=== PATIENT | male | born 1980 | race Caucasian/White ===

== ENCOUNTER → 2016-12-23 07:59 | Day surgery (SDC) | payer MEDICAID, OTHER ==
[~2016-12-23 07:59] MED LIST: Buffered Lidocaine 1% SYR 3ML* 3 ML/SYR SYRINGE INTRADERM ONE; Bupivacaine 0.5% W/EPI SDV* 30 ML VIAL ONE; Clindamycin 900 MG IVPREMIX(* 900 MG/50 ML SDV IV ONE; Desflurane* 240 ML INH ONE; Dexamethasone IV* 4 MG/ML 1 ML (4 MG) IV SLOW PU ONE; Dexamethasone IV* 4 MG/ML 1 ML (4 MG) ONE; DiMENhydriNATE IV* 50 MG/ML VIAL IV PUSH PRN; EPINEPHrine AMP 1 MG/ML ONE; Famotidine IV* 10 MG/ML 2 ML (20 mg) IV ONE; Famotidine IV* 10 MG/ML 2 ML (20 mg) ONE; HYDROmorphone INJ* 1 MG/ML CARPUJECT SYRINGE IV PRN; Ketorolac INJ* 30 MG/ML 1 ML VIAL ONE; Levalbuterol 0.63MG/3ML NEB INH ONE; Levalbuterol 1.25MG/0.5ML NEB ONE; Midazolam* 1 MG/ML 5 ML VIAL (5 MG) ONE; Ondansetron INJ* 2 MG/ML VIAL IV PRN; Ondansetron INJ* 2 MG/ML VIAL ONE; Propofol* 10 MG/ML 20 ML BTL IV PUSH ONE; ROPIVACAINE 5 MG/ML 30 ML BTL (0.5%) ONE; Scopolamine 1.5 mg* PATCH TRANSDERM PRN; Scopolamine PATCH Remove* 1 NOTE MISC PATCH OFF ONE; fentaNYL* 50 MCG/ML 2 ML VIAL (100 MCG VIAL) IV PRN; fentaNYL* 50 MCG/ML 2 ML VIAL (100 MCG VIAL) ONE; fentaNYL* 50 MCG/ML 5 ML VIAL (250 MCG VIAL) ONE; oxyCODONE/Acetamin 5/325 MG* TAB PO PRN
[2016-12-23 16:49] VITALS: BP 125/76
--- NOTE | 2016-12-26 05:05 | OP ---
DATE OF OPERATION: 12/23/16 - [facility] DATE OF : 78 SURGEON: Lewis Zhu MD STEEPLE JACK: ANGUS Walters ANESTHESIOLOGIST: Jeffrey Kam MD ANESTHESIA: General anesthesia, femoral nerve block regional anesthesia. PRE-OP DIAGNOSES: 1. Right knee anterior cruciate ligament tear. 2. Right knee medial meniscus tear. 3. Right knee lateral meniscus tear. POST-OP DIAGNOSES: 1. Right knee anterior cruciate ligament tear. 2. Right knee medial meniscus tear. 3. Right knee lateral meniscus tear. OPERATIVE PROCEDURE: 1. Right knee evaluation under anesthesia. 2. Right knee arthroscopic anterior cruciate ligament reconstruction with bone patella bone allograft. 3. Right knee arthroscopic partial medial meniscectomy. 4. Right knee arthroscopic partial lateral meniscectomy. 5. Right knee arthroscopic synovectomy. ANTIBIOSIS: Clindamycin 900 mg IV. IV FLUIDS: See anesthesia note. TOURNIQUET TIME: Multiple time periods at 300 mmHg. 37 minutes up (knee scope, meniscal work), 5 minutes down (De Espinosa assembled), 60 minutes up (notchplasty, tunnels drilled), 31 minutes down (graft prep #1), 39 minutes up (graft placement, tibial bone block cut-out), 10 minutes down (reprepped graft #1 with whipstitch), 18 minutes up (placement graft, femoral bone block cut-out), 16 minutes down (prep of 2nd allograft), 50 minutes (placement of graft). SPECIMEN: None. IMPLANTS: Charo screws x2. 8 mm x 23 mm in the femur. 10 mm x 23 mm in the tibia. Allograft bone patella tendon bone cadaver tissue. COMPLICATIONS: None. ESTIMATED BLOOD LOSS: Minimal. 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 The patient was injured using a swing with his children. He jumped high into the air off of the swing and landed on both feet, but his right knee hyperextended and bent to the side. He heard and felt a pop. The patient had significant swelling of his right knee as well as ankle pain. At the time, the patient had no insurance, so he waited multiple months until seeing a physician. I met the patient for the first time 3 months after his injury on 09/13/16. At that visit, the patient only had 15 to 90 degrees flexion of the knee, significantly weakened quadriceps, and then exam consistent with an ACL and a medial meniscus tear. The patient was noted to move heavy stuff such as pianos and was noted not to able to work secondary to the feeling of instability of the right knee. I sent the patient to physical therapy to improve his range of motion and quadriceps strength and order an MRI to evaluate for an ACL tear. The patient was supposed to follow up immediately after MRI. It took the patient almost 3 months to return to my clinic after the MRI. At that point, he was not having daily instability at the knee, but he has not yet returned to work because of some subjective feeling of instability. He still had some decreased quadriceps bulk but his range of motion of the knee had improved to 0 to 130 and he no longer had a knee effusion. He still had joint line tenderness and positive Darrell's. He had a positive Carine and anterior drawer with increased laxity and no firm endpoint as well as pain with pivot shift testing. An MRI demonstrated a present ACL but running very horizontally consistent with a tear off the femur, full thickness. There is also noted a partial thickness radial tear in the posterior horn of the medial meniscus, approximately 1 cm from the root with some medial meniscus excursion as well as an oblique tear in the posterior horn of the lateral meniscus. On x-rays, the patient has been noted to have a Segond fracture without any degenerative changes of the joint. The patient on MRI also had stereotypical ACL tear and bone bruises in the lateral compartment. Both meniscal tears were noted to propagate into the roots on MRI. The patient opted for surgical management. DESCRIPTION OF PROCEDURE: Preoperative written consent. Operative extremity was marked in preoperative holding. I consented the patient for ACL reconstruction. We discussed many types of meniscal treatment including partial meniscectomy, meniscus repair, or meniscal root repair, depending on what was encountered intraoperatively. I had all the equipment available for those different procedures. The patient was taken back to the operating room and placed supine on the operating room table. He underwent femoral regional nerve block by Anesthesia. The patient was then sedated and LMA placed. A proximal right thigh tourniquet was placed but not yet elevated. A lateral thigh post was placed on the table. The foot of the table was not dropped. The right lower extremity was prepped and draped. Surgical time-out was performed. Esmarch was applied and the tourniquet was elevated to 300 mmHg. With the knee in 90 degrees of flexion, an anterolateral knee arthroscopy portal was made. Diagnostic arthroscopy was commenced. No articular cartilage damage in the patellofemoral compartment was noted. I moved to the medial compartment and then to the intracondylar notch. In the intracondylar notch, the lateral wall was noted to be bare except for perhaps one fiber of ACL still attached consistent with less than 5% of the thickness of the ACL. An anteromedial knee arthroscopy portal was established under direct visualization and some synovitis anteriorly was debrided with the arthroscopic shaver. The arthroscopic shaver was then used to take down the last few fibers of the ACL and confirmed of a high grade partial or essentially a full thickness proximal ACL tear. At this point, I asked OR staff to thaw a cadaver bone patella bone allograft. I then directed my attention to the medial compartment. The medial compartment was noted to be quite tight even with significant valgus pressure exacted on the knee. I did visualize a partial thickness radial shaped tear in the mid posterior horn. I looked that there was some amount of tissue that had attempted with only partial success at healing there. No clear propagation of the tear into the root. Using basket biters as well as an arthroscopic shaver, I just debrided the unhealed inner surface loose meniscal tissue about the radial tear. I confirmed with an arthroscopic probe the stability of the remaining meniscus. No repair appropriate or required. I then moved to the lateral compartment. The lateral compartment tear appeared very river to what had been visualized on the MRI axial cuts. There was what appeared at first on the inner surface to be a radial tear, over 1.5 cm from the root of the posterior horn of the lateral meniscus. However, would started down as radial then oblique centrally towards the capsule. There had been some better healing peripheral than central. I debrided the inner most surface of the radial component of this tear. The tear itself was too far from the root for a meniscal root repair. Given its mostly radial nature, it was less appropriate for a meniscus repair as well there appeared to be some healing of the more peripheral aspect of the meniscal tissue. Therefore, after a small amount of lateral meniscectomy, I confirmed the stability of remainder of the tear and moved on. The tourniquet was dropped. My learning and development assistant and I then placed the [facility] leg springer on the OR table and placed the leg in this springer. At just over 90 degrees of flexion in the knee created a new anteromedial knee arthroscopy portal under direct visualization, just superior to the meniscus and more medial than prior portal. I used a vapor and shaver to debride the lateral wall of the intercondylar notch and to take down any remaining ACL fibers that it is essentially laying purely horizontally and scarred up against the PCL. I then did a minimal notchplasty, obtaining a nice arch of the intercondylar notch. With a [place] awl, I marked the 10:45 position with the knee in 90 degrees of flexion. I then hyperflexed the knee to approximately 120 degrees of flexion and placed a pin into the femur, using a 7 mm posterior wall offset guide. Pin was drilled through the femur and came out through the skin. It exited the skin in the location about the anterior most aspect of the iliotibial band, confirming good placement at approximately the 10:45 o'clock position. A sleeve protection retractor was then placed into the knee protecting the medial femoral condyle. A 10 mm reamer was then entered into the knee joint by hand. Attached to power and a femoral tunnel, 30 mm of length was drilled into the femur. Reamer tip and pin were removed from the knee. The detritus in the femoral tunnel was shaved out with an arthroscopic shaver. Excellent position of this tunnel was confirmed with the knee in 90 degrees of flexion. Excellent posterior wall of approximately 2 mm of thickness was confirmed. Knee was replaced to 90 degrees of flexion. Attention was next directed to creation of the tibial tunnel. I noted the position of the anterior horn of the lateral meniscus. The posterior aspect of this was my goal of point as the center of the tibial tunnel. This seemed approximately 7 mm anterior to the anterior aspect of the PCL as well. A tibial tunnel guide, set at 55 degrees was used to place a pin extending centrally, at the level anterior to posterior aspect of the anterior horn of the lateral meniscus. In order to place this pin, I had to make a short, approximately 3 to 4 cm longitudinal incision just medial to the tibial tubercle. I used dissection scissors to spread to bone. I used a mini C- arm fluoroscopy to confirm the appropriateness of the position of this tunnel in both the coronal and sagittal planes. With the knee fully extended, I also confirmed that this pin would be in the appropriate position to prevent ACL graft impingement anteriorly. Reamed a 10 mm tibial tunnel. Used arthroscopic shaver to shave detritus. Used an arthroscopic tam to smooth out the posterior aspect of the lip of that tunnel as it entered into the joint. Tourniquet was dropped. I next worked on preparing my allograft bone patella bone. The bone plugs did not come preshaped, so first I made them into the appropriate shape, so that they would pass easily through 10 mm tunnels and passed barely through the 9.5 mm tunnels using crimpers and rongeurs. The bones appeared good quality first although the tibial bone blocks fragmented near the patellar tendon. I attempted to keep it together using a circumferential Vicryl 2-0 stitch. I passed FiberWire #5 suture through the proximal and distal bone plugs. I then passed the graft into the knee and placed the proximal bone plug into the femoral bone tunnel after using a engine repair supervisor , nitinol wire, tap, and a 8 mm Charo Mitek Biocomposite screw. I cycled the knee. I put the knee in extension and with tension on the graft was ready to place my tibial screw. At this point, the FiberWire suture pulled through the bone graft in the tibia. Therefore, I had to remove the entire allograft from both femur and tibia. Initially, my plan was to use this graft without a bone plug distally and instead just whipstitch it and I therefore used as fixation only a screw and washer distally. Therefore, using a FiberWire #2 suture, I whipstitched the distal third to half of the graft. I went to place this graft and the FiberWire suture pulled through the patellar bone plug, which was meant to go in the femur. Therefore, I asked for a second cadaver specimen. Second cadaver bone patella bone allograft came to me pre-formed. I debrided a little bit more with crimpers and rongeurs making it the appropriate size. I placed 2 FiberWire #5 sutures at both posterior and distal. Placed [place] of truss suture through the femoral tunnel and then down the tibial tunnel, used this to pass by graft. Graft passed. I placed a 8 mm x 23 mm Charo screw proximally after having passed the nitinol wire and tapped. Excellent fit there. Then in the tibia, with the knee fully extended, and a posterior drawer being performed by an learning and development assistant, I placed a nitinol wire, tap, and placed a 10 mm Charo Biocomposite screw. I looked with the knee and ACL graft with an excellent position. Good stability with Carine and anterior drawer testing. Sutures cut. Irrigation of wound. Closure of a distal vertical incision was done with deep, subcutaneous, and superficial subcutaneous buried simple stitches using Vicryl 2.0 suture. Closure of the skin with a running stitch using nylon 4.0 suture. A closure of knee arthroscopy portals with figure-of- eight stitches using nylon 4.0 suture. Also closure of the skin defect proximal in the knee where the a pin had exited multiple times. Tourniquet was dropped. Xeroform, 4x4s, ABD, sterile [place]bril, Jan bandage from foot to mid thigh. A knee brace was placed on and locked in extension. The patient was awakened and extubated and brought to the PACU. DISPOSITION: The patient was to be discharged home when medically stable. The patient will receive Percocet post-operatively for pain control. The patient will receive clindamycin antibiosis postoperatively for infection prophylaxis. The patient will receive Lovenox 40 mg subcu daily x2 weeks postoperatively. I chose this rather than aspirin because the patient's family has a genetic history of predisposition to blood clots. The patient did not know what this disposition is, but he states that his sister has had multiple DVTs as well as a PE as well as his mother. The patient states that a genetic workup of his sister has been done and some genetic predisposition has been confirmed, but the patient was not aware of the details. Therefore, I was cautious and decided on Lovenox postoperatively. The patient will start physical therapy next week for an ACL reconstruction protocol one without meniscal repair. The patient will follow up with me in 10 to 14 days postoperatively. [id number]/[id number] #: [id number] [facility]
--- NOTE | 2016-12-30 10:35 | RAD ---
INDICATION: The ACL repair COMPARISONS: MRI dated November 24, 2015 TECHNIQUE: Fluoroscopy was provided for a surgical procedure. Total fluoroscopy time is: 21 seconds FINDINGS: Spot images demonstrate post surgical change to the proximal tibia IMPRESSION: FLUOROSCOPY WAS PROVIDED FOR A SURGICAL PROCEDURE CPT II Codes: 6045F
== END | disposition home or self-care (01) ==
LOC: OR 07:59
PROVIDERS: ATTEND Orthopaedic Surgery
DX: S83.511A Sprain of anterior cruciate ligament of right knee, initial encounter (principal); S83.241A Other tear of medial meniscus, current injury, right knee, initial encounter; S83.281A Other tear of lateral meniscus, current injury, right knee, initial encounter; F17.210 Nicotine dependence, cigarettes, uncomplicated; X50.0XXA Overexertion from strenuous movement or load, initial encounter; Y92.89 Other specified places as the place of occurrence of the external cause
CPT/HCPCS: 76000; A9270-GY; C1713; C1776; J0171; J1100; J1885; J2250; J2405; J2704; J2795; J3010

== ENCOUNTER 2018-01-16 18:53 | Emergency (ER) | payer OTHER ==
[2018-01-16] MEDS ORDERED: Ibuprofen TAB* 600 MG PO ONE (19:59)
--- NOTE | 2018-01-16 19:59 | RAD ---
INDICATION: Right hand and wrist pain since the previous night after punching a concrete wall. COMPARISON: None. TECHNIQUE: 4 views of the right hand and 3 views of the right breast were obtained. FINDINGS: The adequately corticated bones are in normal alignment. No significant focal osseous abnormality or fracture is seen. Joint spaces appear maintained. IMPRESSION: No radiographically apparent fracture or dislocation of the right hand or wrist. If the patient's symptoms persist, follow-up imaging is recommended.
[2018-01-16] MEDS ORDERED: Ibuprofen TAB* 600 MG ONE (20:00)
--- NOTE | 2018-01-16 20:06 | ED ---
Upper Extremity Pain - HPI Summary HPI Summary: 29 male presents ED with complaints of right wrist and hand pain after punching a wall yesterday around 9 PM. Patient is right-hand dominant. States he was trying to knock a wall down and was having fun and didn't realize there was cinderblocks behind the wall which she ended up punching. He today he has trouble moving it to pain. Admits to some mild swelling. No bruising. Denies any obvious deformity. No numbness or tingling. No other complaints or injuries. No past medical history. Has not taken any medications. Has full range of motion of fingers and wrist with some pain. Did wrap an Jan wrap he had a home with some relief. - History of Current Complaint Chief Complaint: EDExtremityUpper Stated Complaint: RT WRIST INJURY Time Seen by Provider: 01/16/18 19:05 Hx Obtained From: Patient Onset/Duration: Started Days Ago - Last night, Traumatic, Still Present Timing: Constant Severity Initially: Mild Severity Currently: Moderate Pain Location: Wrist - Right, Hand - Right Character: Sharp, Aching Aggravating Factor(s): Movement, Other - Touch Alleviating Factor(s): Nothing Associated Signs & Symptoms: Positive: Swelling - mild. Negative: Numbness/ Tingling Related History: Dominant Hand Right - Allergies/Home Medications Allergies/Adverse Reactions: Allergies Allergy/AdvReac Type Severity Reaction Status Date / Time Penicillins Allergy Unknown Verified 01/16/18 18:59 Reaction Details PMH/Surg Hx/FS Hx/Imm Hx Endocrine/Hematology History: Denies: Hx Diabetes, Hx Thyroid Disease Cardiovascular History: Denies: Hx Congestive Heart Failure, Hx Hypertension, Hx Pacemaker/ICD Respiratory History: Denies: Hx Asthma, Hx Chronic Obstructive Pulmonary Disease (COPD) GI History: Reports: Hx Gastroesophageal Reflux Disease - occassionally - no meds, Hx Irritable Bowel - has symptoms Denies: Hx Ulcer History: Denies: Hx Renal Disease Musculoskeletal History: Reports: Hx Arthritis - hands Sensory History: Reports: Hx Contacts or Glasses - glasses Denies: Hx Hearing Aid Opthamlomology History: Reports: Hx Contacts or Glasses - glasses Psychiatric History: Denies: Hx Panic Disorder - Surgical History Surgery Procedure, Year, and Place: N/a - Immunization History Immunizations Up to Date: Yes Infectious Disease History: No Infectious Disease History: Denies: Hx Clostridium Difficile, Hx Hepatitis, Hx Human Immunodeficiency Virus (HIV), Traveled Outside the [place] in Last 30 Days Comment Only: 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 - Family History Known Family History: Positive: Hypertension - Social History Alcohol Use: Weekly Alcohol Amount: 2x/week Substance Use Type: Reports: Marijuana Substance Use Comment - Amount & Last Used: 2-3x/week Smoking Status (MU): Light Every Day Tobacco Smoker Type: Cigarettes Amount Used/How Often: 1/2 ppd Review of Systems Constitutional: Negative Cardiovascular: Negative Respiratory: Negative Positive: Arthralgia, Myalgia, Decreased ROM - right hand and wrist Skin: Negative Neurological: Negative All Other Systems Reviewed And Are Negative: Yes Physical Exam Triage Information Reviewed: Yes Vital Signs On Initial Exam: Initial Vitals Temp Pulse Resp BP Pulse Ox 100.2 F 72 18 141/89 97 01/16/18 18:55 01/16/18 18:55 01/16/18 18:55 01/16/18 18:55 01/16/18 18:55 Vital Signs Reviewed: Yes Appearance: Positive: Well-Appearing, Well-Nourished, Pain Distress - Mild to moderate with movement or touch of the right hand and wrist Skin: Positive: Warm, Skin Color Reflects Adequate Perfusion, Dry. Negative: Cold, Numb, Cyanosis @, Pale, Erythema @ Head/Face: Positive: Normal Head/Face Inspection Eyes: Positive: Conjunctiva Inflammed Neck: Positive: Supple Respiratory/Lung Sounds: Positive: Clear to Auscultation, Breath Sounds Present. Negative: Rales, Rhonchi, Wheezes Cardiovascular: Positive: Normal, RRR, Pulses are Symmetrical in both Upper and Lower Extremities - 2+ radial. Negative: Murmur, Rub Musculoskeletal: Positive: Strength/ROM Intact - However painful with wrist flexion and extension and hand/finger movement of right extremity, Pain @ - On palpation of right diffuse wrist and hand both palmar and dorsal side no pain of fingers, Other - No edema, ecchymosis, erythema. Negative: Limited @, Interruption @ - No obvious deformity, crepitus, step-off, Edema Left, Edema Right Neurological: Positive: Normal, Sensory/Motor Intact, Alert, Oriented to Person Place, Time, Reflexes Intact, NV Bundle Intact Distally Diagnostics - Vital Signs Vital Signs Temp Pulse Resp BP Pulse Ox 01/16/18 18:55 100.2 F 72 18 141/89 97 - Laboratory Lab Statement: Any lab studies that have been ordered have been reviewed, and results considered in the medical decision making process. - Radiology right wrist/hand Xray Interpretation: No Acute Changes - No radiographically apparent fracture or dislocation of the right hand or wrist. If the patient's symptoms persist, follow-up imaging is recommended. Radiology Interpretation Completed By: Radiologist Re-Evaluation - Re-Evaluation First Eval Re-Evaluation Time: 19:55 Change: Unchanged - Still feeling fine updated on x-ray results and plan. Patient agrees. Discharge Course/Dx - Course Course Of Treatment: X-rays obtained of wrist and hand of right extremity both negative for acute fracture due to diffuse pain appears to be a contusion versus sprain. Given cock-up splint. Ibuprofen for pain and inflammation. Continue ibuprofen at home. Rest ice elevation and compression. Do not remove splint until symptoms improve. Aware worsening signs and symptoms to watch out for. Follow-up with orthopedics if symptoms do not get better or worsen. Follow-up with PCP no other concerns at this time. Normal physical exam and vital signs otherwise - Diagnoses Differential Diagnosis/HQI/PQRI: Positive: Contusion, Fracture (Closed), Strain , Sprain Provider Diagnoses: Wrist sprain, Hand sprain, Contusion Discharge - Sign-Out/Discharge Documenting (check all that apply): Discharge - Discharge Plan Condition: Good Disposition: HOME Prescriptions: Ibuprofen TAB* [Motrin TAB* 600 MG] 600 mg PO Q6H PRN #25 tab PRN Reason: Pain Patient Education Materials: Contusion in Adults (ED), Hand Sprain (ED) Referrals: [place] MD [Medical Doctor] - [facility] [facility] [Outside] Additional Instructions: Continue taking ibuprofen as needed for pain and inflammation. Rest, ice, elevate and keep splint applied. Avoid use until symptoms improve. Follow-up with orthopedics if symptoms persist, worsen or new symptoms develop. Follow-up with PCP to ensure improvement Any new or worsening signs or symptoms please seek medical attention and return to ED as discussed.. - Billing Disposition and Condition Condition: GOOD Disposition: HOME
[2018-01-16 20:16] VITALS: BP 159/91
== END 2018-01-16 20:18 | disposition home or self-care (01) ==
LOC: ED 18:53
DX: S63.501A Unspecified sprain of right wrist, initial encounter (principal); S60.229A Contusion of unspecified hand, initial encounter; W22.01XA Walked into wall, initial encounter; Y92.9 Unspecified place or not applicable; F17.210 Nicotine dependence, cigarettes, uncomplicated; Z87.19 Personal history of other diseases of the digestive system; Z88.0 Allergy status to penicillin
CPT/HCPCS: 99282; A9270-GY